=== PATIENT | male | born 1985 | race Caucasian/White ===

== ENCOUNTER 2022-01-23 11:29 | Emergency (ER) | payer OTHER, SELFPAY ==
[2022-01-23 11:59] VITALS: BP 156/74; PULSE 123; RESP 16; TEMP 36.4; O2SAT 99
[2022-01-23 12:00] VITALS: BP 149/87; PULSE 93; RESP 18; O2SAT 98
[2022-01-23 12:06] VITALS: TEMP 36.6
[2022-01-23] MEDS: CEPHALEXIN 500 MG CAPSULE PO (12:25)
[2022-01-23] MEDS: IBUPROFEN 600 MG TABLET PO (12:25)
--- NOTE | 2022-01-23 12:45 | PC.NURSE ---
Dr. Yi at bedside for I&D of buttocks abscess.
[2022-01-23] MEDS: LIDO 1%/EPINEPHRINE 1:100,000 10 ML VIAL (12:46)
--- NOTE | 2022-01-23 12:53 | ED.GENADULT ---
HPI - General Adult General Chief complaint: Unspecified Stated complaint: cyst Time Seen by Provider: 01/23/22 12:08 Source: RN notes reviewed History of Present Illness HPI narrative: Patient presents emergency department from home for right buttocks abscess. Patient states that she had a history of recurrent abscess on his right buttocks that occurs approximately twice per year states he has seen a surgeon but they had said at that time was too small to remove states this area is had increasing pain and tenderness over the past 3 days and is consistent with his previous abscesses that had to be drained he denies any fevers or chills abdominal pain nausea vomiting or any other symptoms Related Data Allergies Allergy/AdvReac Type Severity Reaction Status Date / Time No Known Allergies Allergy Verified 01/23/22 12:07 Review of Systems Review of Systems: Gen.: Denies fevers or chills Respiratory: Denies shortness of breath CV: Denies chest pain GI: Denies abdominal pain nausea, emesis or diarrhea Musculoskeletal: Denies back pain or muscle pain Neuro: Denies headache or weakness Skin: See HPI Except as documented, all other systems reviewed and negative [facility] Past Medical History Medical History (Updated 01/23/22 @ 12:55 by Edgard Yi DO) Patient denies significant medical history Family History Family History (Updated 02/18/18 @ 15:45 by DOCTOR UNKNOWN) Other Family history of malignant neoplasm Hypertension Social History Social History Smoking status: Current every day smoker Alcohol intake: never Exam Narrative: APPEARANCE: No acute distress, nontoxic, resting in bed EYES: EOMI HEENT: Normocephalic, atraumatic, OMM RESPIRATORY: No respiratory distress Clear to auscultation bilaterally with no rhonchi wheezing or rales. CARDIOVASCULAR: Regular rate and rhythm without murmurs rubs or gallops. ABDOMINAL: Soft, nontender, nondistended, no rebound or guarding MUSCULOSKELETAl: Moves all extremities. NEURO: Awake and alert. Following commands, speech normal, no focal deficits SKIN:: Warm, dry. Right medial buttocks with a 2 cm x 1 cm fluctuant abscess with surrounding erythema does not extend into the rectum or into the pilonidal region no active drainage PSYCHIATRIC: Normal affect/mood, Course Course Emergency Course: Discussed with patient results of workup and diagnosis. Discussed need for follow-up with primary care, proper use of medication, and reasons to return to the emergency department. Patient understands and agrees to current treatment plan Vital Signs Vital signs: Vital Signs Temperature 97.6 F 01/23/22 11:59 Pulse Rate 123 H 01/23/22 11:59 Respiratory Rate 16 01/23/22 11:59 Blood Pressure 156/74 H 01/23/22 11:59 Pulse Oximetry 99 01/23/22 11:59 Temperature 97.9 F 01/23/22 12:06 Pulse Rate 93 01/23/22 12:00 Respiratory Rate 18 01/23/22 12:00 Blood Pressure 149/87 H 01/23/22 12:00 Pulse Oximetry 98 01/23/22 12:00 Procedures Abscess I/D other: Abcess I&D Additional Comments: Verbal consent was obtained prior to procedure. The abscess was cleaned with Betadine and lidocaine 1% with epi was used for anesthesia. The abscess was incised with an 11 blade. There was return of approximately 5-6 mL of thick purulent drainage. Curved hemostats were used to break up loculations, the wound was irrigated with normal saline. Following a sterile dressing was applied. Patient tolerated the procedure well Medical Decision Making Vital Signs Vital Signs: Vital Signs Temperature 97.6 F 01/23/22 11:59 Pulse Rate 123 H 01/23/22 11:59 Respiratory Rate 16 01/23/22 11:59 Blood Pressure 156/74 H 01/23/22 11:59 Pulse Oximetry 99 01/23/22 11:59 Temperature 97.9 F 01/23/22 12:06 Pulse Rate 93 01/23/22 12:00 Respiratory Rate 18 01/23/22 12:00 Blood Pressure 149/87 H 01/23
== END 2022-01-23 13:29 | disposition home or self-care (01) ==
PROVIDERS: Emergency Provider Emergency Medicine
DX: L02.31 Cutaneous abscess of buttock (principal); F17.200 Nicotine dependence, unspecified, uncomplicated
CPT/HCPCS: 10061; 99283; A9270

== ENCOUNTER 2022-04-28 10:35 | Emergency (ER) | payer OTHER, SELFPAY ==
[2022-04-28 10:36] VITALS: BP 137/76; PULSE 101; RESP 16; TEMP 36.5; O2SAT 93
--- NOTE | 2022-04-28 14:22 | ED.GENADULT ---
HPI - General Adult General Chief complaint: Skin/Abscess/Foreign Body Stated complaint: Ear Problem Time Seen by Provider: 04/28/22 13:16 History of Present Illness HPI narrative: 36-year-old male presented to the emergency department for evaluation of a abscess of the left earlobe. Patient states he has had a worsening abscess of the left earlobe over the past few days. Patient states he does have significant history of abscesses and is currently scheduled to have a perirectal abscess drained. Related Data Allergies Allergy/AdvReac Type Severity Reaction Status Date / Time acetaminophen [From [place]] AdvReac Nausea Verified 02/11/22 09:18 hydrocodone [From [place]] AdvReac Nausea Verified 02/11/22 09:18 Review of Systems Review of Systems: CONSTITUTIONAL: Denies fever, chills, or sweats. EYES: Denies visual changes, redness, or discharge. ENT: See HPI left earlobe pain CARDIOVASCULAR: Denies chest pain, palpitations, or edema. RESPIRATORY: Denies cough or dyspnea. GASTROINTESTINAL: Denies abdominal pain, nausea, vomiting, or diarrhea. GENITOURINARY: Denies dysuria or hematuria. SKIN: Denies rash or itching. MUSCULOSKELETAL: Denies back pain, joint pain, or myalgia. NEUROLOGIC: Denies headache, numbness, or weakness. PMFSH Past Medical History Medical History Asthma Surgical History Surgical History H/O wisdom tooth extraction Family History Family History Father Carcinoma of colon Malignant neoplasm of prostate Mother Hypertension Other Family history of malignant neoplasm Social History Social History Smoking packs per day: 1 Smoking cigarettes per day: 20.0 Smoking status: Current every day smoker Alcohol use details: very rare alcohol use Exam Narrative: APPEARANCE: Well appearing, no pain, no distress, well-nourished. HEAD: normocephalic, atraumatic. EYES: PERRLA/EOMI, conjunctivae clear. NOSE: Normal no drainage EARS:TMS clear with good light reflex. THROAT: Pharynx clear, no exudate. NECK: Supple. No adenopathy, no masses. RESPIRATORY: Airway patent, respirations nonlabored. Clear to auscultation bilaterally, no rales, rhonchi, wheezing. CARDIOVASCULAR: Regular rate and rhythm without murmurs rubs or gallops. ABDOMINAL: Soft, nontender, nondistended, normal bowel sounds MUSCULOSKELETAL: Moves all extremities. Strength/ROM intact, No edema, No calf tenderness. NEURO: Alert. Cranial nerves II through XII intact. Grossly intact Course Course Emergency Course: Abscess was drained and 1/4 inch iodoform gauze was placed. Patient was started on clindamycin encouraged to have close follow-up with his primary care physician for packing change. Patient was given the iodoform to take to his primary care physician office. Vital Signs Vital signs: Vital Signs Temperature 97.7 F 04/28/22 10:36 Pulse Rate 101 H 04/28/22 10:36 Respiratory Rate 16 04/28/22 10:36 Blood Pressure 137/76 04/28/22 10:36 Pulse Oximetry 93 04/28/22 10:36 Oxygen Delivery Room Air 04/28/22 10:36 Temperature 97.7 F 04/28/22 10:36 Pulse Rate 76 04/28/22 14:33 Respiratory Rate 18 04/28/22 14:33 Blood Pressure 132/68 04/28/22 14:33 Pulse Oximetry 99 04/28/22 14:33 Oxygen Delivery Room Air 04/28/22 10:36 Procedures Abscess I/D other: Time of Incision: 14:24 Side (if applicable): left Local Anesthetic: lidocaine 2% Amount of anesthesia used (mL): 2 Technique: incised with #11 blade Amount of fluid expressed (mL): 1 Irrigation: Yes Packing used?: iodoform I&D Results: Pus and Blood Medical Decision Making Vital Signs Vital Signs: Vital Signs Temperature 97.7 F 04/28/22 10:3
[2022-04-28] MEDS: CLINDAMYCIN HCL 150 MG CAP 300 MG PO (14:24)
[2022-04-28 14:33] VITALS: BP 132/68; PULSE 76; RESP 18; O2SAT 99
== END 2022-04-28 14:35 | disposition home or self-care (01) ==
PROVIDERS: Emergency Provider Emergency Medicine; PCP Internal Medicine Infectious Disease
DX: H60.02 Abscess of left external ear (principal); J45.909 Unspecified asthma, uncomplicated; F17.210 Nicotine dependence, cigarettes, uncomplicated
CPT/HCPCS: 10061; 69000; 99283; A9270

== ENCOUNTER 2024-07-17 14:36 | Emergency (ER) | payer OTHER, SELFPAY ==
[2024-07-17 14:42] VITALS: BP 121/72; PULSE 90; RESP 16; TEMP 36.2; O2SAT 99
--- NOTE | 2024-07-17 17:45 | PC.NURSE ---
PT [facility]BS d/t wait time
== END 2024-07-17 18:50 | disposition left against medical advice (07) ==
LOC: ANHED 17:52
PROVIDERS: PCP Internal Medicine Infectious Disease
DX: Z53.21 Procedure and treatment not carried out due to patient leaving prior to being seen by health care provider (principal)
CPT/HCPCS: 99199